=== PATIENT | male | born 1990 | race Caucasian/White ===

== ENCOUNTER 2019-06-12 14:42 | Emergency (ER) | payer MEDICAID ==
[~2019-06-12] VITALS: Ht 165.1 cm; Wt 66.2 kg
[2019-06-12 14:50] VITALS: Ht 165.1 cm; Wt 66.2 kg
[2019-06-12 15:51] VITALS: BP 128/76
== END 2019-06-12 15:51 | disposition home or self-care (01) ==
LOC: ED 14:42
DX: J10.1 Influenza due to other identified influenza virus with other respiratory manifestations (principal)
CPT/HCPCS: 87804; Q0092